=== PATIENT | male | born 1980 | race Hispanic/Latino ===

== ENCOUNTER 2020-01-14 23:30 | Inpatient (IN) | payer SELFPAY ==
[2020-01-15 00:56] LABS: Hemoglobin 14.2 g/dL (14.0-18.0); Mean Corpuscular HGB CONC 33.8 g/dL (32.0-36.0); Mean Corpuscular Hemoglobin 33.4 pg (27.0-31.0); RBC Distribution Width 13.5 % (11.5-14.5); Red Blood Cell (RBC) Count 4.25 mill/uL (4.70-6.10); White Blood Cell (WBC) Count 11.8 thou/uL (4.8-10.8)
[2020-01-15 01:11] LABS: #Basophils 0.3 thou/uL (0.0-0.2); #Eosinphils 0.3 thou/uL (0.0-0.7); #Monocytes 1.7 thou/uL (0.11-0.59); #Neutrophils 6.6 thou/uL (1.40-6.50); %Basophils 2.5 % (0.0-1.0); %Eosinophils 2.1 % (0.0-10.0); %Lymphocytes 25.3 % (21.0-51.0); %Monocytes 14.1 % (0.0-10.0); Mean Platelet Volume 9.4 fL (7.4-10.4); Platelet Count 103 thou/uL (130-400); Platelet Morphology Comment Appears Decreased
[2020-01-15 01:12] LABS: ALT (SGPT) 68 U/L (8-55); AST (SGOT) 82 U/L (5-34); Albumin 2.5 g/dL (3.5-5.0); Alkaline Phosphatase 101 U/L (40-110); Anion Gap 13 mmol/L (10-20); BUN (Urea Nitrogen) 20 mg/dL (8.9-20.6); Bilirubin, Total 2.8 mg/dL (0.2-1.2); CK (CPK) 68 U/L (30-200); Calc. Creatinine Clearance 0 mL/min (70-130); Calcium 7.7 mg/dL (7.8-10.44); Carbon Dioxide 23 mmol/L (22-29); Chloride 103 mmol/L (98-107); Estimated GFR-MDRD 82; Globulin 3.9 g/dL (2.4-3.5); Glucose 100 mg/dL (70-105); Potassium 3.8 mmol/L (3.5-5.1); Protein, Total 6.4 g/dL (6.0-8.3); Sodium 135 mmol/L (136-145)
[2020-01-15] MEDS ORDERED: hydrALAZINE 20 MG/ML VIAL ONE (02:25)
--- NOTE | 2020-01-15 03:25 | PDOC.HHP ---
Hospitalist HPI - History of Present Illness Chest pain; Swelling History of Present Illness: 40 yo morbidly obese male with no significant PMH presents to ED due to chest pain and swelling. He reports that he has had 9/10 deep pain in the left side of his chest x 3 days. This pain radiates to his left shoulder and back and is aggravated with coughing and sneezing and relieved with rest. His cough is dry without any sputum. No wheezing. Reports fevers x 2 days. Had diarrhea 2 days ago without any blood or black colored stools. He reports dyspnea at rest and worsening with minimal activity. Reports orthopnea and PND. Reports new leg swelling in both legs. Also c/o left upper abdominal pain that is stabbing in nature and worsening with cough. Denies burning or pain with urination, dizziness, palpitations, nausea, vomiting or constipation. No rashes or brusing. No sick contacts. Lives with his sister. No recent travel history. ED Course: Found to have fever of 100.8 F and CXR done. US gall bladder with cholecystitis and positive sonographic Jennings's sign. 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 Gastrointestinal: reports: no pertinent history Psych: reports: Anxiety - Past Surgical History Past Surgical History: reports: no pertinent history (reviewed) - Family History Family History: reports: diabetes mellitus (mother) - Social History Smoking Status: Former smoker (quit 3 yrs ago) Tobacco Type: cigarettes (14 pack yrs) Alcohol: reports: None Drugs: reports: marijuana Living Situation: With Family Activity level: independent ambulation - Exam General Appearance: awake alert, ill appearing Eye: PERRL, anicteric sclera ENT: normocephalic atraumatic, moist mucosa ENT - other findings: Mallampati 4; Macroglossia Neck: supple, symmetric, no JVD, no thyromegaly, no lymphadenopathy Heart: no murmur, no gallops, no rubs, normal peripheral pulses Heart - other findings: tachycardia present Respiratory: no wheezes, no rales, no ronchi Respiratory - other findings: reduced air entry B/L; using accessory muscles Gastrointestinal: soft, normal bowel sounds, no guarding, no rigidity, tender to palpation (RUQ) Gastrointestinal - other findings: obese Extremities: no cyanosis, no clubbing, 2+ LE edema (bilateral pitting upto the thighs) Skin: normal turgor, no lesions, no rashes Neurological: cranial nerve grossly intact, normal sensation to touch, no weakness, no focal deficits Musculoskeletal: normal tone, normal strength, no muscle wasting Psychiatric: normal behavior, A&O x 3 Psychiatric - other findings: anxious Hospitalist Results - Labs Result Diagrams: 01/15/20 00:48 01/15/20 00:48 Lab results: WBC 11.8 thou/uL (4.8-10.8) H 01/15/20 00:48 Hgb 14.2 g/dL (14.0-18.0) 01/15/20 00:48 Hct 42.1 % (42.0-52.0) 01/15/20 00:48 MCV 99.0 fL (78.0-98.0) H 01/15/20 00:48 Plt Count 103 thou/uL (130-400) L 01/15/20 00:48 Neutrophils % 56.0 % (42.0-75.0) 01/15/20 00:48 Sodium 135 mmol/L (136-145) L 01/15/20 00:48 Potassium 3.8 mmol/L (3.5-5.1) 01/15/20 00:48 Chloride 103 mmol/L (98-107) 01/15/20 00:48 Carbon Dioxide 23 mmol/L (22-29) 01/15/20 00:48 BUN 20 mg/dL (8.9-20.6) 01/15/20 00:48 Creatinine 1.02 mg/dL (0.7-1.3) 01/15/20 00:48 Glucose 100 mg/dL (70-105) 01/15/20 00:48 Calcium 7.7 mg/dL (7.8-10.44) L 01/15/20 00:48 Total Bilirubin 2.8 mg/dL (0.2-1.2) H 01/15/20 00:48 AST 82 U/L (5-34) H 01/15/20 00:48 ALT 68 U/L (8-55) H 01/15/20 00:48 Alkaline Phosphatase 101 U/L (40-110) 01/15/20 00:48 Creatine Kinase 68 U/L (30-200) 01/15/20 00:48 Troponin I Less than 0.010 ng/mL (< 0.028) 01/15/20 00:48 B-Natriuretic Peptide 15.2 pg/mL (0-100) 01/15/20 00:48 Serum Total Protein 6.4 g/dL (6.0-8.3) 01/15/20 00:48 Albumin 2.5 g/dL (3.5-5.0) L 01/15/20 00:48 - EKG Interpretation EKG: Personally reviewed; Sinus tachycardia; No ST-T changes concerning for ischemia - Radiology Interpretation Chest x-ray Status: image reviewed by me (No acute consolidation or CP angle blunting) US - abdomen Status: report reviewed by me (Cholelithiasis with positive sonographic Jennings' s sign) Hospitalist H&P A/P - Problem (1) Sepsis Code(s): A41.9 - SEPSIS, UNSPECIFIED ORGANISM Status: Acute Qualifiers: Sepsis type: sepsis due to unspecified organism Sepsis acute organ dysfunction status: unspecified Qualified Code(s): A41.9 - Sepsis, unspecified organism Assessment and Plan: Related to cholecystitis Admit to inpatient status to [facility] High risk due to risk of severe sepsis, need for inpatient surgery and risk of respiratory failure that may need intubation and mechanical ventilation Expected to stay at least 2 midnights Surgery consult placed by ED physician IV abx Likely needs cholecystectomy. Will defer to surgery about timing of surgery vs cholecystostomy placement given his body habitus No IV fluids given his fluid overload status Cultures obtained (2) Cholecystitis, acute with cholelithiasis Code(s): K80.00 - CALCULUS OF GALLBLADDER W ACUTE CHOLECYST W/O OBSTRUCTION Status: Acute Qualifiers: Biliary obstruction: with biliary obstruction Qualified Code(s): K80.01 - Calculus of gallbladder with acute cholecystitis with obstruction Assessment and Plan: As mentioned above (3) CHF (congestive heart failure) Code(s): I50.9 - HEART FAILURE, UNSPECIFIED Status: Acute Qualifiers: Heart failure type: unspecified Heart failure chronicity: acute Qualified Code(s): I50.9 - Heart failure, unspecified Assessment and Plan: New onset pedal edema and has abdominal wall pitting edema Admit to IMCU BIPAP continuous Likely has cor pulmonale and diastolic CHF Lasix drip. Fluid and salt restriction Strict input and output ECHO May need cardio consult Cycle cardiac enzymes (4) Obesity hypoventilation syndrome Code(s): E66.2 - MORBID (SEVERE) OBESITY WITH ALVEOLAR HYPOVENTILATION Status : Suspected Assessment and Plan: Suspect OHS Pulmonary consult ABG to evaluate hypercapnia BIPAP support (5) Thrombocytopenia Code(s): D69.6 - THROMBOCYTOPENIA, UNSPECIFIED Status: Acute Assessment and Plan: Pt. may have COCHRAN and cirrhosis vs related to sepsis Monitor platelet level closely (6) Pedal edema Code(s): R60.0 - LOCALIZED EDEMA Status: Acute Assessment and Plan: Will obtain venous dopplers Lasix drip (7) HTN (hypertension) Code(s): I10 - ESSENTIAL (PRIMARY) HYPERTENSION Status: Chronic Qualifiers: Hypertension type: unspecified Qualified Code(s): I10 - Essential (primary ) hypertension Assessment and Plan: Essential HTN vs related to possible [place]'s Lasix drip for fluid overlaod Hold HTN meds for now to avoid hypotension given sepsis and lasix drip (8) Morbid obesity Code(s): E66.01 - MORBID (SEVERE) OBESITY DUE TO EXCESS CALORIES Status: Chronic Assessment and Plan: Has buffalo hump and darnell facies Concern for [place]'s Will obtain random cortisol level - Plan Plan: Code status - FULL CODE
[2020-01-15] MEDS ORDERED: Furosemide 100 MG, Admixture Fee 1 EACH in Sodium Chloride 0.9% 90 ML IVPB SCH (03:30)
[2020-01-15] MEDS ORDERED: Cefepime 2 GM VIAL ONE ×3 (04:14→04:28)
[2020-01-15] MEDS ORDERED: Furosemide 100 MG in Sodium Chloride 0.9% 90 ML IVPB SCH (04:30)
[2020-01-15] MEDS: Cefepime 2 GM in Sodium Chloride 0.9% 100 ML IVPB SCH ×2 (04:34→18:10)
[2020-01-15] MEDS ORDERED: cloNIDine 0.1 MG TAB ONE (06:22)
[2020-01-15 06:28] LABS: INR-International Normal Ratio 1.3; Prothrombin Time 16.6 SEC (12.0-14.7)
[2020-01-15 06:50] LABS: Troponin I Less than 0.010 ng/mL (< 0.028)
[2020-01-15 06:50] LABS: ALT (SGPT) 67 U/L (8-55); AST (SGOT) 83 U/L (5-34); Albumin 2.6 g/dL (3.5-5.0); Alkaline Phosphatase 103 U/L (40-110); Anion Gap 11 mmol/L (10-20); BUN (Urea Nitrogen) 20 mg/dL (8.9-20.6); Bilirubin, Total 2.8 mg/dL (0.2-1.2); Calc. Creatinine Clearance 0 mL/min (70-130); Carbon Dioxide 23 mmol/L (22-29); Chloride 104 mmol/L (98-107); Estimated GFR-MDRD Greater than 90; Globulin 4.4 g/dL (2.4-3.5); Glucose 90 mg/dL (70-105); Potassium 3.6 mmol/L (3.5-5.1); Sodium 134 mmol/L (136-145)
[2020-01-15 07:07] LABS: HBSAg Index 0.39 S/CO (0-0.99); Hep A IgM AB Non-Reactive (NonReactive); Hep B Surf Ag Non-Reactive S/CO (NonReactive); Hepatitis B Core IgM Abs Non-Reactive (NonReactive); Thyroid Stimulating Hormone 3.2918 uIU/mL (0.35-4.94)
[2020-01-15 07:11] LABS: Hep C IgG Ab Reflex HepC Qnt (NonReactive)
--- NOTE | 2020-01-15 07:54 | ULT ---
PRELIMINARY REPORT/[facility]/EMERGENCY AFTER HOURS PROCEDURE Receipt of this report by the clinical staff was confirmed with Antwon Ray RN by Alissa Kingston Jan 15, 2020 02:47:00 RIGGER THIRD. Addendum electronically signed by Alissa Kingston on January 15, 2020 2:48:04 AM RIGGER THIRD EXAM: US Abdomen Limited, Right Upper Quadrant. CLINICAL HISTORY: Epigastric pain, CP TECHNIQUE: Real-time ultrasound of the right upper quadrant with image documentation. COMPARISON: None provided. FINDINGS: LIVER: Enlarged, measuring up to 21.6 cm in the right hepatic lobe. No focal hepatic lesions. Liver echogenicity is within normal limits. GALLBLADDER: Multiple gallstones seen within the gallbladder. The gallbladder wall thickness is 5 mm . No significant pericholecystic fluid. Sonographic Jennings's test is positive. COMMON BILE DUCT: No dilation. PANCREAS: Unremarkable as visualized. The distal pancreas is obscured by overlying bowel gas. RIGHT KIDNEY: Measures 12.8 cm in length. Unremarkable. No hydronephrosis. IMPRESSION: 1. Cholelithiasis with gallbladder wall thickening and positive sonographic Jennings's test which are worrisome for acute cholecystitis. Recommend surgical evaluation. 2. Hepatomegaly. ELECTRONICALLY SIGNED BY: Camden Madrigal M.D. Jan 15, 2020 2:30:53 AM RIGGER THIRD This report is intended for review by the ordering physician only, in accordance of law. If you recei ve this report in error, please call [facility] at [phone]. FINAL REPORT EMERGENCY AFTER HOURS RIGHT UPPER QUADRANT ULTRASOUND: HISTORY: Epigastric abdominal pain, chest pain. IMPRESSION: 1. Cholelithiasis with mild gallbladder wall thickening and positive sonographic Jennings's sign elicit ed by the engineering psychologist. These findings can be seen with cholecystitis. Surgical consultation is suggested. If there remains clinical concern, hepatobiliary study can be performed for further evalua tion. 2. Hepatomegaly. The liver measures 21.6 cm in length. Report in agreement with preliminary report by [facility]. Transcribed Date/Time: 01/15/2020 8:05 AM
[2020-01-15 08:38] LABS: Hemoglobin 14.1 g/dL (14.0-18.0); Mean Corpuscular Hemoglobin 33.4 pg (27.0-31.0); Mean Corpuscular Volume 98.2 fL (78.0-98.0); Mean Platelet Volume 9.3 fL (7.4-10.4); Platelet Count 100 thou/uL (130-400); RBC Distribution Width 13.5 % (11.5-14.5); Red Blood Cell (RBC) Count 4.21 mill/uL (4.70-6.10); White Blood Cell (WBC) Count 10.3 thou/uL (4.8-10.8)
--- NOTE | 2020-01-15 08:53 | CON ---
DATE OF CONSULTATION: CHIEF COMPLAINT: Chest pain with cough. HISTORY: A 40-year-old morbidly obese male, who had a fever 2 days ago. 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 He was having chest and back pain and a dry cough. He says that his chest pain got worse when he coughed. It occasionally radiate to the back. No nausea or vomiting. PAST MEDICAL HISTORY: Morbid obesity, congestive heart failure. PAST SURGICAL HISTORY: None. MEDICATIONS: He is on no medications. FAMILY HISTORY: Arthritis. SOCIAL HISTORY: He is single. He runs a [employer] shop. He quit smoking 3 years ago. Occasional whiskey. ALLERGIES: NO KNOWN DRUG ALLERGIES. PHYSICAL EXAMINATION: VITAL SIGNS: Temperature 100.8, pulse 104, and blood pressure 177/98. GENERAL: Morbidly obese male, appears to be in some mild dyspnea. HEENT: No jaundice. LUNGS: Clear, but distant. HEART: Regular rate and rhythm, but tachycardic. ABDOMEN: Morbidly obese, soft. I cannot elicit any tenderness. No palpable masses. EXTREMITIES: There is some edema. LABORATORY DATA: White count is 11.8, H and H of 14 and 42, and platelet count 103. Electrolytes are fine. Creatinine 0.9, T-bili is 2.8, AST 83, and ALT 67. Ultrasound shows hepatomegaly, multiple gallstones. No pericholecystic fluid. No thickening of the gallbladder wall, but they reported a sonographic Jennings's. Chest x-ray showed cardiomegaly. ASSESSMENT: 1. Congestive heart failure. 2. Cholelithiasis, possible choledocholithiasis. PLAN: Follow LFTs, IV antibiotics. Recommend GI consultation. When his heart is in better shape, recommend laparoscopic cholecystectomy. Job ID: [id number]
[2020-01-15 08:57] LABS: Band 8 % (5-11); Eosinophils 3 % (0-10); Lymphocytes 26 % (21-51); MDiff Complete? YES; Monocytes 4 % (0-10); Myelocyte 2 % (0-0); Neutrophil 57 % (42-75); Platelet Morphology Comment Appears Decreased; RBC Morphology Normal
--- NOTE | 2020-01-15 09:34 | ULT ---
BILATERAL LOWER EXTREMITY VENOUS DUPLEX EXAM: Date: 01/15/2020 HISTORY: Bilateral leg pain and swelling. FINDINGS: Real-time color Doppler of right and left lower extremity was performed from groin to calf. This incl udes evaluation of the common femoral, superficial and profunda femoral, saphenous, popliteal, and po sterior tibial veins. This shows patent deep venous systems bilaterally. There is normal compressibil ity and augmentation. There is no evidence of deep venous thrombosis. IMPRESSION: No evidence of deep venous thrombosis of either lower extremity. POS: [facility]
[2020-01-15] MEDS ORDERED: Famotidine/PF 20 mg/2ml Vial SLOW IVP SCH ×3 (10:49→21:00)
[2020-01-15] MEDS ORDERED: Ondansetron PF 4 MG/2 ML Vial IVP PRN (10:49)
[2020-01-15] MEDS ORDERED: Heparin 5,000 UNITS/ML VIAL SC SCH ×2 (10:49→11:00)
[2020-01-15 11:07] VITALS: BMI 64.5
[2020-01-15 11:59] LABS: Anion Gap 13 mmol/L (10-20); BUN (Urea Nitrogen) 18 mg/dL (8.9-20.6); Calc. Creatinine Clearance 345 mL/min (70-130); Calcium 7.9 mg/dL (7.8-10.44); Carbon Dioxide 21 mmol/L (22-29); Chloride 105 mmol/L (98-107); Estimated GFR-MDRD Greater than 90; Glucose 84 mg/dL (70-105); Potassium 3.8 mmol/L (3.5-5.1); Sodium 135 mmol/L (136-145)
[2020-01-15] MEDS: Vancomycin HCl 1 GM in Premix Bag 1 BAG IVPB SCH ×2 (12:21→23:06)
[2020-01-15] MEDS: Sodium Chloride 0.9% 1,000 ML IV SCH ×3 (12:23→14:46)
[2020-01-15 12:26] LABS: Troponin I Less than 0.010 ng/mL (< 0.028)
[2020-01-15] MEDS: metroNIDAZOLE 500 MG in Premix Bag 1 BAG IVPB SCH ×2 (14:44→21:09)
[2020-01-15] MEDS: Heparin 5,000 UNITS/ML VIAL SC SCH ×2 (14:48→21:08)
--- NOTE | 2020-01-15 15:36 | CON ---
DATE OF CONSULTATION: 01/15/2020 CHIEF COMPLAINT: Chest pain. HISTORY OF PRESENT ILLNESS: Mr. Blackwell is a 40-year-old man with morbid obesity, who reports feeling feverish starting 3 nights ago. He developed pain in his left chest with a cough. He has had some persistent cough for a longer period of time. His cough has been dry and now he gets a sharp pain over the left pectoral area, that radiates through to his left shoulder blade with the cough. He also elicits this pain somewhat when he lies on the left side. He has had no nausea or vomiting. No abdominal pain. His pain is unrelated to meals. He was noted to have elevated liver tests when he came to the emergency room, so he had an ultrasound performed, that showed gallstones. He also had gallstones noted by ultrasound back in 2012 , which have remained asymptomatic. He had no biliary dilation with that. His pain has been persistent over the last 3 days, but again just comes with the cough and lasts for minutes or seconds at a time. He has had no diarrhea, constipation, or blood in the stool. PAST MEDICAL HISTORY: Morbid obesity. PAST SURGICAL HISTORY: Negative. FAMILY HISTORY: Negative for GI malignancy. Negative for liver disease. SOCIAL HISTORY: He quit smoking 3 years ago. He drinks alcohol around once per month since then, but he used to drink more heavily in the past. There is history of marijuana use. Denies IV drug use. 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 ALLERGIES: NO KNOWN DRUG ALLERGIES. MEDICATIONS PRIOR TO ADMISSION: None. REVIEW OF SYSTEMS: Negative x10 systems reviewed except as stated in the history of present illness. PHYSICAL EXAMINATION: VITAL SIGNS: Temperature 97.7, pulse 106, blood pressure 152/76. GENERAL: He is morbidly obese. He states that he is 5 feet 11 inches and his weight is 462 pounds. He is in no acute distress. Alert and oriented x3. HEENT: Eyes have no scleral icterus. Oropharynx is clear without lesions. NECK: He has extremely thick neck. RESPIRATORY: His respiratory status is somewhat labored just based on his obesity. His lungs are clear to auscultation bilaterally. HEART: Regular rate and rhythm without murmur. ABDOMEN: Soft, nontender, and nondistended. He has absolutely no tenderness in the right upper quadrant with palpation up under the right ribs with inspiration. His bowel sounds are present. EXTREMITIES: 1+ pitting lower extremity edema. LABORATORY DATA: White blood cell count 10.3, hemoglobin 14.1, and platelets 100. INR 1.3. Creatinine 0.86. Bilirubin 2.8, AST 83, ALT 67, alkaline phosphatase 103, and albumin 2.6. TSH 3.29. Hepatitis C antibody is positive. Hepatitis B surface antigen is negative. Hepatitis A IgM is negative. IMAGING STUDIES: He had an ultrasound of his gallbladder in the emergency room, that showed a 5-mm gallbladder wall and known gallstones without any bile duct dilation. IMPRESSION: 1. Pleuritic chest pain. He has pain over the left pectoral area, that radiates through to his left scapular area with cough, but no tenderness in the right upper quadrant or epigastric region and no relation of his pain to meals, just with cough. His primary complaint has all been respiratory with the persistent cough and the left-sided chest pain. This appears to be unrelated to his gallbladder. 2. Cholelithiasis. He does have some mild gallbladder wall thickening, which could be from portal hypertension. Again, I do not see obvious evidence of acute cholecystitis at this point. 3. Elevated liver tests. The pattern of liver tests are concerning for cirrhosis. He has hepatitis C antibody positive. He is at risk for fatty liver disease. The low platelet count is suggestive of portal hypertension. His AST is greater than the ALT, which can be seen with cirrhosis. His bilirubin is elevated with a normal alkaline phosphatase. His albumin is low and his INR is slightly elevated. We will await the hepatitis C RNA level and check for other causes of liver disease as well including autoimmune markers and alpha-1 antitrypsin level. However, hepatitis C and fatty liver would certainly be enough explanation if he does have cirrhosis to be an etiology for him. He does have significant prior alcohol use, but states that over the last 3 years has been down to once per month with that. There is no evidence of choledocholithiasis at this point. 4. Morbid obesity along with lower extremity edema and a very thick neck. He could be at risk for cardiac complications related to his obesity and also sleep apnea. RECOMMENDATIONS: 1. Check hepatitis C RNA and genotype. Also check autoimmune markers and iron saturation for further workup of liver disease. Liver biopsy would be helpful to help rule in the diagnosis of cirrhosis. 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 This can be followed more as an outpatient. 2. Consider followup chest x-ray. His primary complaints have all been pulmonary and pleuritic pain with cough. I will defer this to the primary service. 3. Echocardiogram might also be helpful. Again, I will defer this to the primary service. Cardiac evaluation will be required for any type of anesthesia. Job ID: [id number] [facility]
--- NOTE | 2020-01-15 17:26 | CON ---
DATE OF CONSULTATION: 01/15/2020 CONSULTING PHYSICIAN: Hospitalist Group. REASON FOR CONSULTATION: Sleep apnea. HISTORY OF THE PRESENT ILLNESS: Nadir is a 40-year-old male, who lives in [place]. He was admitted to the hospital today with a several month history of coughing, but a brief history of fever and chest congestion. Based on liver function test, he was felt to have the possibility of cholecystitis, but I think General Surgery and GI have mixed their idea. The patient is morbidly obese weighing over 460 pounds with a BMI of 64. 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 He has never had sleep testing in the past, although he suspects he has sleep apnea based on heavy snoring and witnessed apnea. PAST MEDICAL HISTORY: Morbid obesity. PAST SURGICAL HISTORY: None. FAMILY MEDICAL HISTORY: Remarkable for diabetes in his mother. SOCIAL HISTORY: He quit smoking 3 years ago. He has used marijuana in the past. Does not consume alcohol. 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 MEDICATIONS: Prior to admission, none. ALLERGIES: NONE. REVIEW OF SYSTEMS: Remarkable for shortness of breath, cough, pleuritic left-sided chest pain, subjective fever and chills, gastroesophageal reflux, and peripheral edema. PHYSICAL EXAMINATION: VITAL SIGNS: His temperature is 98.0, pulse 101, respirations 16, O2 saturation 92% on room air, and blood pressure 132/63. GENERAL: He is a morbidly obese male, who is pleasant. He is covered with tattoos from his neck downward. HEENT: He has patent nostrils. He has a class 4 Mallampati airway. NECK: His neck has increased girth. No JVD. LUNGS: Clear without wheezing, but he does have an episodic cough, which is dry. CARDIAC: S1 and S2. Regular without murmur. ABDOMEN: Morbidly obese, soft, and nontender. EXTREMITIES: No clubbing or cyanosis. Trace ankle edema. LABORATORY DATA: White blood cell count 10.3, hematocrit 41.3, and platelet count 100. His INR is 1.3. Sodium 135, potassium 3.8, chloride 105, CO2 of 21, BUN 18, creatinine 0.8, glucose 90, AST 83, ALT 67, and total bilirubin 2.8. Cortisol 13.2. His hepatitis C antibody was positive. Hepatitis B serologies were negative. An x-ray at outside facility showed no evidence of mass, effusion, or infiltrate. A venogram of his lower extremities demonstrated no evidence of DVT. He had venous blood gas at an outside facility, which demonstrated pH of 7.42 and pCO2 of 38. ASSESSMENT: 1. In all likelihood, this patient does have severe obstructive sleep apnea. Diagnosis of cor pulmonale would require echocardiogram to further assess for the possibility of pulmonary hypertension. I do not think he has obesity hypoventilation syndrome based on his normal pCO2 on the venous blood gas. 2. Probable upper respiratory infection. RECOMMENDATION: 1. Quick conversion over to oral antibiotics. 2. Needs an outpatient sleep study, although his lack of insurance will make that is somewhat of a possibility. 3. Home sleep study is a possibility for the patient, but he would have to come up with a funding afterward to obtain CPAP machine. 4. Needs extensive weight loss. I discussed this with the patient and his family. He seems motivated, but definitely needs some help in achieving his long-term goals. 5. Eventual cholecystectomy. Job ID: [id number]
--- NOTE | 2020-01-15 18:15 | PDOC.EVN ---
Event Note - Event Note Event Note: Encounter patient at around 9am. Symptoms mostly c/w pneumonia/URI rather than cholecystitis. Dry on exam, morbidly obese but no significant hypervolemia appreciated. Will add vancomycin, flagyl considering patient somewhat somnolent on encounter, stop lasix, and provide fluids pending further evaluation by GI, pulm, and surgery.
[2020-01-15 20:03] LABS: Anion Gap 9 mmol/L (10-20); BUN (Urea Nitrogen) 16 mg/dL (8.9-20.6); Calc. Creatinine Clearance 338 mL/min (70-130); Calcium 7.8 mg/dL (7.8-10.44); Carbon Dioxide 24 mmol/L (22-29); Chloride 105 mmol/L (98-107); Estimated GFR-MDRD Greater than 90; Glucose 96 mg/dL (70-105); Potassium 3.9 mmol/L (3.5-5.1); Sodium 134 mmol/L (136-145)
[2020-01-16] MEDS: Cefepime 2 GM in Sodium Chloride 0.9% 100 ML IVPB SCH (05:22)
[2020-01-16] MEDS: metroNIDAZOLE 500 MG in Premix Bag 1 BAG IVPB SCH (05:22)
[2020-01-16] MEDS: Acetaminophen 325 MG TAB PO PRN ×2 (05:30→21:40)
[2020-01-16 06:07] LABS: Hemoglobin 13.8 g/dL (14.0-18.0); Mean Corpuscular HGB CONC 34.2 g/dL (32.0-36.0); Mean Corpuscular Hemoglobin 33.6 pg (27.0-31.0); Mean Corpuscular Volume 98.3 fL (78.0-98.0); Mean Platelet Volume 9.6 fL (7.4-10.4); Platelet Count 103 thou/uL (130-400); RBC Distribution Width 13.7 % (11.5-14.5); Red Blood Cell (RBC) Count 4.12 mill/uL (4.70-6.10); White Blood Cell (WBC) Count 9.2 thou/uL (4.8-10.8)
[2020-01-16 06:20] LABS: ALT (SGPT) 57 U/L (8-55); AST (SGOT) 75 U/L (5-34); Albumin 2.4 g/dL (3.5-5.0); Alkaline Phosphatase 100 U/L (40-110); Anion Gap 11 mmol/L (10-20); BUN (Urea Nitrogen) 13 mg/dL (8.9-20.6); Bilirubin, Total 2.8 mg/dL (0.2-1.2); Calc. Creatinine Clearance 386 mL/min (70-130); Calcium 7.7 mg/dL (7.8-10.44); Carbon Dioxide 22 mmol/L (22-29); Chloride 106 mmol/L (98-107); Estimated GFR-MDRD Greater than 90; Globulin 4.1 g/dL (2.4-3.5); Glucose 83 mg/dL (70-105); Potassium 3.8 mmol/L (3.5-5.1); Protein, Total 6.5 g/dL (6.0-8.3); Sodium 135 mmol/L (136-145)
[2020-01-16 06:25] LABS: HIV (1/2) Antibody/Antigen Non-Reactive (NonReactive); HIV 1/2 INDEX 0.08 S/CO (<1.00)
[2020-01-16 06:29] LABS: ALT (SGPT) 57 U/L (8-55); AST (SGOT) 76 U/L (5-34); Albumin 2.3 g/dL (3.5-5.0); Alkaline Phosphatase 97 U/L (40-110); Bilirubin, Direct 1.7 mg/dL (0.1-0.3); Bilirubin, Total 2.7 mg/dL (0.2-1.2); Iron 75 ug/dL (65-175); Iron Binding Capacity, Total 143 mcg/dL (261-462); Magnesium 1.8 mg/dL (1.6-2.6); Protein, Total 6.5 g/dL (6.0-8.3)
[2020-01-16] MEDS: Sodium Chloride 0.9% 1,000 ML IV SCH (06:31)
[2020-01-16] MEDS ORDERED: cefTRIAXone Sodium 2,000 MG in Syringe 0 ML IVPB SCH (07:30)
[2020-01-16 07:34] LABS: Band 1 % (5-11); Eosinophils 3 % (0-10); Lymphocytes 22 % (21-51); MDiff Complete? YES; Monocytes 16 % (0-10); Neutrophil 58 % (42-75); Platelet Morphology Comment Appears Decreased; RBC Morphology Normal
[2020-01-16] MEDS ORDERED: cefTRIAXone\\ROCEPHIN 2 GM in Sodium Chloride 0.9% 100 ML IVPB SCH (08:00)
[2020-01-16] MEDS ORDERED: Doxycycline 100 MG CAP PO SCH (09:00)
[2020-01-16] MEDS: Famotidine 20 MG TAB PO SCH ×2 (09:10→21:41)
[2020-01-16] MEDS: Heparin 5,000 UNITS/ML VIAL SC SCH ×3 (09:10→21:41)
--- NOTE | 2020-01-16 09:34 | PRG ---
DATE OF SERVICE: 01/16/2020 SUBJECTIVE: The patient is doing reasonably well without complaints. He wants to go home. OBJECTIVE: VITAL SIGNS: His temperature is 97.8, pulse 90, respirations 16, O2 saturation 91% on room air, blood pressure 142/66. HEENT: Unremarkable. NECK: No adenopathy or JVD. LUNGS: Clear. CARDIAC: S1 and S2. Regular. ABDOMEN: Soft. EXTREMITIES: No edema. ASSESSMENT: 1. Probable underlying obstructive sleep apnea. No evidence of cor pulmonale on echo. No evidence of obesity hypoventilation syndrome on blood gas. 2. Upper respiratory tract infection. PLAN: Cleared to go home from my standpoint. Needs outpatient sleep study, but funding is a big issue. Needs extensive weight loss. No further recommendations. We will sign off. Job ID: [id number]
--- NOTE | 2020-01-16 09:47 | PRG ---
DATE OF SERVICE: 01/16/2020 SUBJECTIVE: The patient says he feels a lot better. He still has a little bit of residual left shoulder pain and left pectoralis pain. No right side pain. No nausea. No vomiting. He is tolerating a regular diet. OBJECTIVE: VITAL SIGNS: His temperature is 97.8, pulse 90, and blood pressure is 142/66. GENERAL: Morbidly obese male, in no apparent distress. Awake, alert, and oriented. HEENT: No jaundice. LUNGS: Clear. HEART: Regular rate and rhythm. ABDOMEN: Morbidly obese. No tenderness. LABORATORY DATA: His white count is 9.2, H and H are 13 and 40, and platelet count is 103. Electrolytes are fine. T bilirubin maintains at 2.8. His AST and ALT are mildly elevated. His serology shows that his hep C antibody is positive. ASSESSMENT: Gallstones, but high-risk surgical patient with possible cirrhosis and hepatitis C. PLAN: Recommend he lose weight, elective cholecystectomy in the future, but not right now. Job ID: [id number]
--- NOTE | 2020-01-16 14:04 | ULT ---
EXAM: Left upper extremity venous Doppler HISTORY: Assessment of left upper extremity DVT. FINDINGS: Grayscale, color-flow, Doppler evaluation, spectral analysis of the left upper extremity venous struc tures is performed with 2-D imaging. There is normal lumen compressibility and flow seen in the left internal jugular, axillary, and brachial veins. Normal flow is present in the left subclavian ve in. Flow is demonstrated within the left ulnar and radial veins. There is eccentric increased luminal echogenicity and decreased lumen compressibility involving the l eft upper extremity cephalic vein at the level of the antecubital fossa consistent with nonocclusive thrombus. The cephalic vein is a superficial vein. There is otherwise normal flow and cara men compressibility and the remainder of the visualized left upper extremity cephalic vein. There is normal luminal compressibility and flow in the left upper extremity basilic vein. IMPRESSION: 1. No evidence of a DVT involving the visualized deep venous structures left upper extremity. 2. Nonocclusive thrombus in the left cephalic vein at the level of the antecubital fossa. This is a s uperficial vein.
[2020-01-16 16:32] LABS: EliA Vaculitis New Method **** NEW METHOD ****; Mitochondrial Ab 1.8 U/mL (<4 Negative)
--- NOTE | 2020-01-16 21:03 | PRG ---
DATE OF SERVICE: 01/16/2020 SUBJECTIVE: Mr. Blackwell complains of cough. His abdominal muscles are sore from the coughing. He has no other abdominal pain. He tolerated solid diet without any problems and without any change in his pain. OBJECTIVE: VITAL SIGNS: Temperature 98.3, pulse 99, blood pressure 146/78. GENERAL: He is in no acute distress. Alert and oriented x3. LUNGS: Clear to auscultation bilaterally, however, has decreased breath sounds. HEART: Regular rate and rhythm without murmur. EXTREMITIES: 2+ pitting lower extremity edema. ABDOMEN: Soft, nontender, and nondistended. IMPRESSION: 1. Cough and chest wall pain and abdominal wall pain from coughing. 2. Cholelithiasis, which appears to be asymptomatic at this point. 3. Abnormal liver tests with evidence of portal hypertension with thrombocytopenia along with AST greater than the ALT and hypoalbuminemia and elevated bilirubin, elevated INR, all concerning for cirrhosis. Diagnosis is not confirmed at this point. 4. Hepatitis C antibody positive. Hepatitis C RNA level is pending. RECOMMENDATIONS: 1. Follow up in GI Clinic for further evaluation of his liver disease and hepatitis C. 2. I will sign off. Please call if GI can be of assistance. Job ID: [id number]
[2020-01-16] MEDS: Benzonatate 100 MG CAP PO PRN (21:40)
--- NOTE | 2020-01-16 22:04 | PDOC.HOSPP ---
- Subjective Encounter Date: 01/16/20 Encounter Time: 09:00 Subjective: no overnight events. This morning, feels much better and claims he has been back at baseline since last night. Has no complaints. - Objective Vital Signs & Weight: Vital Signs (12 hours) Temp Pulse Resp BP Pulse Ox 01/16/20 20:00 100 F H 96 20 150/82 H 93 L 01/16/20 16:01 98.3 F 99 20 146/78 H 96 01/16/20 11:34 99.1 F 95 23 H 147/67 H 95 Weight Weight 462 lb 4.8 oz I&O: 01/15/20 01/16/20 01/17/20 06:59 06:59 06:59 Intake Total 240 1329 Balance 240 1329 Result Diagrams: 01/16/20 05:04 01/16/20 05:04 Hospitalist ROS - Review of Systems Constitutional: denies: fever, chills, sweats, weakness, malaise, other Respiratory: reports: cough, dry. denies: shortness of breath, hemoptysis, SOB with excertion, pleuritic pain, sputum Cardiovascular: denies: chest pain, palpitations, orthopnea, paroxysmal noc. dyspnea, edema, light headedness Gastrointestinal: denies: nausea, vomiting, abdominal pain, diarrhea, constipation, melena, hematochezia, other Genitourinary: denies: dysuria, frequency, incontinence, hematuria, retention, other Skin: denies: rash, lesions, desmond, bruising, other Neurological: denies: weakness, numbness, incoordination - Medication Medications: Active Medications Generic Name Dose Route Start Last Admin Trade Name Kyeq PRN Reason Stop Dose Admin Acetaminophen 650 mg 01/15/20 10:49 01/16/20 05:30 Tylenol PO 650 mg Q4H PRN Administration Headache/Fever/Mild Pain (1-3) Famotidine 20 mg 01/16/20 09:00 01/16/20 09:10 Pepcid PO 20 mg BID ERI Administration Heparin Sodium (Porcine) 5,000 units 01/15/20 15:00 01/16/20 15:07 Heparin SC 5,000 units TID ERI Administration Sodium Chloride 10 ml 01/15/20 21:00 01/16/20 11:05 Flush - Normal Saline IVF 10 ml Q12HR ERI Administration - Exam General Appearance: NAD, awake alert General - other findings: morbidly obese Eye: PERRL, anicteric sclera Heart: RRR, no murmur, no gallops, no rubs, normal peripheral pulses Respiratory: CTAB, no wheezes, no rales, no ronchi, normal chest expansion, no tachypnea, normal percussion Gastrointestinal: soft, non-tender, non-distended, normal bowel sounds, no palpable masses, no hepatomegaly, no splenomegaly, no bruit Extremities: no cyanosis, no clubbing, 2+ LE edema Extremities - other findings: b/l pitting edema to knee level Neurological: cranial nerve grossly intact, normal sensation to touch, no weakness, no focal deficits, no new deficit Psychiatric: normal affect, normal behavior, A&O x 3 Hosp A/P - Plan #URI -stopped ABx; patient's presentation c/w URI and severe dehydration #Chronic hepatitis C / cirrhosis -hepatitis C antibody positive; viral load pending -GI signed off, will complete workup as outpatient #suspected APOLLO -STOPBANG high risk for APOLLO -will require sleep study as outpatient Plan: -liver U/S -outpatient appointment with GI for additional f/u -will DC 01/17 Full code
[2020-01-17 05:20] LABS: Anion Gap 7 mmol/L (10-20); BUN (Urea Nitrogen) 10 mg/dL (8.9-20.6); Calc. Creatinine Clearance 401 mL/min (70-130); Calcium 7.8 mg/dL (7.8-10.44); Carbon Dioxide 27 mmol/L (22-29); Chloride 105 mmol/L (98-107); Estimated GFR-MDRD Greater than 90; Glucose 89 mg/dL (70-105); Magnesium 1.9 mg/dL (1.6-2.6); Potassium 4.1 mmol/L (3.5-5.1); Sodium 135 mmol/L (136-145)
[2020-01-17 07:34] VITALS: BP 146/81; TEMP 99.5
[2020-01-17] MEDS: Benzonatate 100 MG CAP PO PRN (09:38)
[2020-01-17] MEDS: Famotidine 20 MG TAB PO SCH (09:38)
[2020-01-17] MEDS: Heparin 5,000 UNITS/ML VIAL SC SCH (09:40)
[2020-01-17 20:08] LABS: HCV log10 5.925 (.); Hep C PCR-Quant 842000 IU/mL (.)
--- NOTE | 2020-01-19 01:19 | DIS ---
DATE OF ADMISSION: 01/15/2020 DATE OF DISCHARGE: 01/17/2020 HOSPITAL COURSE: Mr. Blackwell is a 40-year-old male with no significant medical history, who presented to the ED due to chest pain and swelling. He has had this for three days. He was found to have a fever of 100.8 and lactic acidosis of 11.6 on presentation. Ultrasound of the gallbladder showed cholecystitis. However, lab tests were more consistent with intrahepatic pathology. GI was consulted and requested hepatitis panel. The patient is still noted to be hepatitis C positive. As for the patient's acute presentation, he was diagnosed with upper respiratory infection. He was initially on broad-spectrum antibiotics considering his severe presentation. However, the day following presentation, antibiotics were discontinued after the patient showed immediate improvement with IV fluids. The patient was discharged home with followup appointments to his primary care physician, as well as Gastroenterology. He was hemodynamically stable. PHYSICAL EXAMINATION: VITAL SIGNS: Unremarkable. GENERAL: He was in no apparent distress. Alert and oriented x3. Morbidly obese. HEENT: He had macroglossia. NECK: Supple. Symmetric. No JVD. HEART: No murmur. No gallops. No rubs. Normal peripheral pulses. No tachycardia. RESPIRATORY: No wheezes, no rales, no rhonchi. Reduced air bilaterally most likely due to patient's body habitus. GI: Soft, nontender, and nondistended. Normal bowel sounds. EXTREMITIES: No cyanosis, no clubbing. He had +2 bilateral pitting edema up to thigh level. NEUROLOGIC: Cranial nerves grossly intact. Normal sensation to touch. No weakness. No focal deficits. MUSCULOSKELETAL: Normal tone and normal strength. No muscle wasting. PSYCHIATRIC: Proper mood and affect. Alert and oriented x3. ASSESSMENT AND PLAN: Mr. Blackwell is a 40-year-old male, who presented with an upper respiratory infection and likely chronic hepatitis C. The patient was initially on broad-spectrum spectrum antibiotics considering his severe presentation including lactic acidosis of 11.6. However, following IV fluids, he significantly improved and he was more alert to provide a more accurate history of present illness, so antibiotics were discontinued. He was also found to have acute cholecystitis that per the surgical team can be addressed as an elective procedure once the patient is more stable. 1. Upper respiratory infection. The patient has been having a cough for about a week prior to presentation. He was severely dehydrated on presentation and was supplemented with IV fluids. He promptly improved and was educated regarding the natural course of the upper respiratory infection. He was discharged on cough medication p.r.n. 2. Chronic hepatitis C. Hepatitis antibody was positive. Viral load was pending on the day of discharge. Gastroenterology signed off and complete workup as an outpatient. 3. Suspected obstructive sleep apnea, high risk based on STOP-Bang score, would require sleep study as an outpatient, which was told to the patient and was also noted in the discharge packet, so that his primary care physician can follow up on the suspected obstructive sleep apnea. Job ID: [id number]
[2020-01-19 19:09] LABS: Smooth Muscle Total ABS 36 Units (0-19)
--- NOTE | 2020-01-20 08:45 | PQF ---
Nadir Blackwell, MIRIAM [id number] CLINICAL DOCUMENTATION CLARIFICATION FORM: POST DISCHARGE Addendum to original discharge summary date: ____ Late entry note date: __ DATE: 01/20/2020 ATTN:MIRIAM MAGDALENO Please exercise your independent, professional judgment in responding to the clarification form. Clinical indicators are provided on the bottom of this form for your review Please check appropriate box(s): HEART FAILURE: A. TYPE: [ ] Systolic / HFrEF [ ] Diastolic / HFpEF [ ] Combined Systolic / Diastolic B. ACUITY [ ] Acute [ ] Acute on Chronic [ ] Chronic [ x ] Other diagnosis _cor pulmonale [ ] Unable to determine For continuity of documentation, please document condition throughout progress notes and discharge summary. Thank You. CLINICAL INDICATORS - SIGNS / SYMPTOMS / LABS - CHF: Heart failure type: unspecified, Chronicity: Acute- H&P, 01/15, Odilia River MD - New onset pedal edema and has abdominal wall pitting edema- H&P, 01/15, Odilia River MD - Likely has cor pulmonale and diastolic CHF-H&P, 01/15, Odilia River MD - There appears to be normal left ventricular systolic function- PARKER: 01/15 - EF calculated: 40%- PARKER: 01/15 - BNP: 15.2- Laboratory, 01/15 RISKS: - Hypertension-H&P, 01/15, Odilia River MD TREATMENTS: - PARKER, 01/15 - Furosemide.IV- [facility], 01/15 (This form is maintained as a part of the permanent medical record) [employer] [id number] [employer]. All Rights Reserved Terence [email or web address]
[2020-01-20 14:11] LABS: Alpha-1-Antitrypsin 226 mg/dL (95-164)
== END 2020-01-17 12:04 | disposition home or self-care (01) | DRG 445 ==
LOC: ERS 23:30 → ERHOLD 01-15 01:39 → 2SE 01-15 10:27
PROVIDERS: ADMIT Internal Medicine Sleep Medicine; ATTEND Internal Medicine
DX: K80.00 Calculus of gallbladder with acute cholecystitis without obstruction (principal); E87.2 Acidosis; K76.6 Portal hypertension; Z68.44 Body mass index [BMI] 60.0-69.9, adult; B18.2 Chronic viral hepatitis C; E86.0 Dehydration; I50.9 Heart failure, unspecified; D69.6 Thrombocytopenia, unspecified; I11.0 Hypertensive heart disease with heart failure; I27.81 Cor pulmonale (chronic); J06.9 Acute upper respiratory infection, unspecified; E66.01 Morbid (severe) obesity due to excess calories; F41.9 Anxiety disorder, unspecified; Z87.891 Personal history of nicotine dependence
CPT/HCPCS: 36415; 76705; 80048; 80053; 80074; 82103; 82104; 82533; 82550; 83516; 83540; 83550; 83735; 83880; 84443; 84484; 85025; 85610; 87389; 87522; 87902; 93005; 93306; 93970; 96374; J0360; J0692; J0696; J1644; J1940; J3370; J3490; S0028